=== PATIENT | female | born 1990 | race Caucasian/White ===

== ENCOUNTER 2020-03-15 10:12 | Inpatient (IN) | payer BC ==
[2020-03-15] MEDS ORDERED: Sodium Chloride 0.9% 10 ML Syringe FLUSH PRN (10:34)
[2020-03-15] MEDS ORDERED: Nalbuphine 10 MG/1 ML Vial IVPUSH PRN (10:34)
[2020-03-15] MEDS ORDERED: Ondansetron 4 MG/2 ML SDV IVPUSH PRN (10:34)
--- NOTE | 2020-03-15 10:36 | PCM.LDHP ---
L&D History of Present Illness - General Date of Service: 03/15/20 Admit Problem/Dx: Patient Status Order with Admit Dx/Problem 03/15/20 10:34 Patient Status [ADT] Routine Admission Diagnosis/Problem Admission Diagnosis/Problem Normal in third trimester Source of Information: Patient History Limitations: Reports: No Limitations - History of Present Illness Introduction:: Patient is a 29 y/o at 40 0/7 wks who presents in labor. Moe irregularly overnight. No LOF - Related Data Allergies/Adverse Reactions: Allergies Allergy/AdvReac Type Severity Reaction Status Date / Time Penicillins Allergy Rash Verified 03/15/20 10:27 Home Medications: Home Meds Vits #93/Iron Fum/FA [ Formula Tablet] 02/13/20 [History] Past Medical History Genitourinary History: Reports: Renal Calculus [employer] SUPER[employer]OR History: Reports: , Spontaneous : 2 Para: 0 LMP (Approximate): - Infectious Disease History Infectious Disease History: Reports: Herpes - Past Surgical History HEENT Surgical History: Reports: Adenoidectomy, Myringotomy w Tube(s), Tonsillectomy Social & Family History - Family History Family Medical History: No Pertinent Family History - Tobacco Use Tobacco Use Status *Q: Former Tobacco User - Caffeine Use Caffeine Use: Reports: Coffee, Energy Drinks, Soda - Alcohol Use Alcohol Use History: No - Recreational Drug Use Recreational Drug Use: No H&P Review of Systems - Review of Systems: Review Of Systems: See Below General: Reports: No Symptoms Pulmonary: Reports: No Symptoms Cardiovascular: Reports: No Symptoms Gastrointestinal: Reports: No Symptoms Genitourinary: Reports: No Symptoms Musculoskeletal: Reports: No Symptoms Psychiatric: Reports: No Symptoms Neurological: Reports: No Symptoms L&D Exam - Exam Exam: See Below - Vital Signs Weight: 92.714 kg - OB Specific Contraction Intensity: Moderate Movement: Active Heart Tones: Present Heart Tones per Min: 140 Heart Rate (FHR) Variability: Moderate (6-25 bmp) Presentation: Vertex - Suh Score Suh Score Cervix Position: Anterior Suh Score Consistency: Soft Suh Score Effacement: >80% Suh Score Dilation: > 5 cm Suh Score 's Station: -2 Suh Score Total: 11 - Exam General: Alert, Oriented, Cooperative Lungs: Clear to Auscultation, Normal Respiratory Effort Cardiovascular: Regular Rate, Regular Rhythm GI/Abdominal Exam: Soft, Non-Tender Genitourinary: Normal external exam Extremities: Normal Inspection Skin: Warm, Dry, Intact - Patient Data Result Diagrams: 03/15/20 10:47 - Problem List (1) 40 weeks gestation of SNOMED Code(s): 99769695 ICD Code: Z3A.40 - 40 WEEKS GESTATION OF Status: Acute Current Visit: Yes Problem List Initiated/Reviewed/Updated: Yes Orders Last 24hrs: Active Orders 24 hr Category Date Time Status Patient Status [ADT] Routine ADT 03/15/20 10:34 Ordered Activity as Tolerated [RC] PFP Care 03/15/20 10:34 Ordered Communication Order [RC] ASDIRECTED Care 03/15/20 10:34 Ordered Heart Tones [RC] ASDIRECTED Care 03/15/20 10:34 Ordered Non Stress Test [RC] PER UNIT ROUTINE Care 03/15/20 10:34 Ordered Notify Provider [RC] PFP Care 03/15/20 10:34 Ordered Notify Provider [RC] PRN Care 03/15/20 10:34 Ordered Peripheral IV Care [RC] . DIRECTED Care 03/15/20 10:34 Ordered Vital Signs [RC] PER UNIT ROUTINE Care 03/15/20 10:34 Ordered CBC W/O DIFF,HEMOGRAM [HEME] Stat Lab 03/15/20 10:34 Ordered CORONAVIRUS COVID-19 MARIO [MOLEC] Stat Lab 03/15/20 10:35 Ordered RAPID PLASMA REAGIN,RPR [CHEM] Routine Lab 03/15/20 10:34 Ordered TYPE AND SCREEN [BBK] Stat Lab 03/15/20 10:34 Ordered Lactated Ringers [Ringers, Lactated] 1,000 ml Med 03/15/20 10:45 Ordered IV ASDIRECTED Nalbuphine [Nubain] Med 03/15/20 10:34 Ordered 10 mg IVPUSH Q2H PRN Ondansetron [Zofran] Med 03/15/20 10:34 Ordered 4 mg IVPUSH Q4H PRN Oxytocin/Lactated Ringers [Pitocin in LR 10 Units/1,000 Med 03/15/20 10:45 Ordered ML] 10 unit in 1,000 ml IV .CONTINUOUS Oxytocin/Lactated Ringers [Pitocin in LR 10 Units/1,000 Med 03/15/20 10:45 Ordered ML] 10 unit in 1,000 ml IV TITRATE Sodium Chloride 0.9% [Saline Flush] Med 03/15/20 10:34 Ordered 10 ml FLUSH ASDIRECTED PRN Electronic Heart Tones Ext w TOCO [WOMSER] Ot 03/15/20 10:34 Ordered Routine Electronic Heart Tones Internal [WOMSER] Per Unit Ot 03/15/20 10:34 Ordered Routine Peripheral IV Insertion Adult [OM.PC] Routine Oth 03/15/20 10:34 Ordered Resuscitation Status Routine Resus Stat 03/15/20 10:34 Ordered Assessment/Plan Comment:: * Labs done * GBS negative * Plans epidural * AROM if / when needed * Anticipate
[2020-03-15] MEDS ORDERED: Oxytocin/Lactated Ringers 10 UNIT/1,000 ML BAG IV SCH ×2 (10:45)
[2020-03-15] MEDS: Lactated Ringers 1,000 ML IV SCH ×3 (11:28→14:25)
[2020-03-15] MEDS ORDERED: diphenhydrAMINE 50 MG/ML SDV IVPUSH PRN (11:37)
[2020-03-15] MEDS ORDERED: fentaNYL 100 MCG/2 ML SDV EPIDUR PRN (11:37)
[2020-03-15] MEDS ORDERED: ePHEDrine 50 MG/ML SDV IVPUSH PRN (11:37)
[2020-03-15] MEDS: Bupivacaine/fentaNYL/NS 100 ML Bag EPIDUR PRN ×2 (11:56→20:56)
--- NOTE | 2020-03-15 12:34 | PCM.PREANE ---
Preanesthetic Assessment - Procedure Proposed Procedure: Labor Epidural - Anesthesia/Transfusion/Family Hx Anesthesia History: Prior Anesthesia Without Reaction Family History of Anesthesia Reaction: No - Review of Systems General: No Symptoms Pulmonary: No Symptoms Cardiovascular: No Symptoms Gastrointestinal: No Symptoms Neurological: No Symptoms Other: Reports: None - Physical Assessment Height: 1.6 m Weight: 92.714 kg ASA Class: 2 Mental Status: Alert & Oriented x3 Airway Class: Mallampati = 2 Dentition: Reports: Normal Dentition Thyro-Mental Finger Breadths: 3 Mouth Opening Finger Breadths: 3 ROM/Head Extension: Full Lungs: Clear to Auscultation, Normal Respiratory Effort Cardiovascular: Regular Rate, Regular Rhythm - Lab Values: Laboratory Last Values WBC 15.65 K/mm3 (3.98-10.04) H 03/15/20 10:47 RBC 4.58 M/mm3 (3.98-5.22) 03/15/20 10:47 Hgb 12.9 gm/dl (11.2-15.7) 03/15/20 10:47 Hct 39.3 % (34.1-44.9) 03/15/20 10:47 MCV 85.8 fl (79.4-94.8) 03/15/20 10:47 MCH 28.2 pg (25.6-32.2) 03/15/20 10:47 MCHC 32.8 g/dl (32.2-35.5) 03/15/20 10:47 RDW Std Deviation 44.7 fL (36.4-46.3) 03/15/20 10:47 Plt Count 205 K/mm3 (182-369) 03/15/20 10:47 MPV 12.2 fl (9.4-12.3) 03/15/20 10:47 SARS-CoV-2 RNA (MARIO) Negative (NEGATIVE) 03/15/20 10:47 Blood Type O POSITIVE 03/15/20 10:47 Gel Antibody Screen Negative 03/15/20 10:47 - Allergies Allergies/Adverse Reactions: Allergies Allergy/AdvReac Type Severity Reaction Status Date / Time Penicillins Allergy Rash Verified 03/15/20 10:27 - Acknowledgements Anesthesia Type Planned: Epidural Pt an Appropriate Candidate for the Planned Anesthesia: Yes Alternatives and Risks of Anesthesia Discussed w Pt/Guardian: Yes Pt/Guardian Understands and Agrees with Anesthesia Plan: Yes PreAnesthesia Questionnaire - Past Health History Medical/Surgical History: Denies Medical/Surgical History Genitourinary History: Reports: Renal Calculus [employer] 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: , Spontaneous Neurological History: Reports: None Psychiatric History: Reports: None Endocrine/Metabolic History: Reports: None Oncologic (Cancer) History: Reports: None Dermatologic History: Reports: None - Infectious Disease History Infectious Disease History: Reports: Herpes - Past Surgical History HEENT Surgical History: Reports: Adenoidectomy, Myringotomy w Tube(s), Tonsillectomy - SUBSTANCE USE Tobacco Use Status *Q: Former Tobacco User Recreational Drug Use History: No - HOME MEDS Home Medications: Home Meds Vits #93/Iron Fum/FA [ Formula Tablet] 02/13/20 [History] - CURRENT (IN HOUSE) MEDS Current Meds: Current Medications Diphenhydramine HCl (Benadryl) 25 mg IVPUSH Q6H PRN PRN Reason: pruritis Ephedrine Sulfate (Ephedrine Sulfate) 5 mg IVPUSH ASDIRECTED PRN PRN Reason: Hypotension Fentanyl (Sublimaze) 100 mcg EPIDUR Q3H PRN PRN Reason: Pain Last Admin: 03/15/20 11:56 Dose: 100 mcg Documented by: Fentanyl/Bupivacaine HCl (Fentanyl/Bupivacaine/Ns 2 Mcg-0.125% 100 Ml) 100 ml EPIDUR ASDIRECTED PRN PRN Reason: Pain Last Admin: 03/15/20 11:56 Dose: 100 ml Documented by: Oxytocin/Lactated Ringer's (Pitocin In Lr 10 Units/1,000 Ml) 10 unit in 1,000 mls @ 500 mls/hr IV .CONTINUOUS JOLYNN Oxytocin/Lactated Ringer's (Pitocin In Lr 10 Units/1,000 Ml) 10 unit in 1,000 mls @ 12 mls/hr IV TITRATE JOLYNN; Protocol Lactated Ringer's (Ringers, Lactated) 1,000 mls @ 100 mls/hr IV ASDIRECTED JOLYNN Last Admin: 03/15/20 12:22 Dose: 100 mls/hr Documented by: Nalbuphine HCl (Nubain) 10 mg IVPUSH Q2H PRN PRN Reason: Pain Ondansetron HCl (Zofran) 4 mg IVPUSH Q4H PRN PRN Reason: Nausea/Vomiting Sodium Chloride (Saline Flush) 10 ml FLUSH ASDIRECTED PRN PRN Reason: Keep Vein Open
--- NOTE | 2020-03-15 17:36 | PCM.PNLD ---
Labor Progress Note - VS & Meds Vital Signs: Last Vital Signs Temp 36.7 C 03/15/20 10:34 Pulse 91 03/15/20 10:34 Resp 16 03/15/20 10:34 BP 127/86 03/15/20 10:34 Pulse Ox 97 03/15/20 10:34 Active Medications: Current Medications Diphenhydramine HCl (Benadryl) 25 mg IVPUSH Q6H PRN PRN Reason: pruritis Ephedrine Sulfate (Ephedrine Sulfate) 5 mg IVPUSH ASDIRECTED PRN PRN Reason: Hypotension Fentanyl (Sublimaze) 100 mcg EPIDUR Q3H PRN PRN Reason: Pain Last Admin: 03/15/20 11:56 Dose: 100 mcg Documented by: Fentanyl/Bupivacaine HCl (Fentanyl/Bupivacaine/Ns 2 Mcg-0.125% 100 Ml) 100 ml EPIDUR ASDIRECTED PRN PRN Reason: Pain Last Admin: 03/15/20 11:56 Dose: 100 ml Documented by: Oxytocin/Lactated Ringer's (Pitocin In Lr 10 Units/1,000 Ml) 10 unit in 1,000 mls @ 500 mls/hr IV .CONTINUOUS JOLYNN Oxytocin/Lactated Ringer's (Pitocin In Lr 10 Units/1,000 Ml) 10 unit in 1,000 mls @ 12 mls/hr IV TITRATE JOLYNN; Protocol Last Titration: 03/15/20 16:07 Dose: 1 munits/min, 6 mls/hr Documented by: Lactated Ringer's (Ringers, Lactated) 1,000 mls @ 100 mls/hr IV ASDIRECTED JOLYNN Last Admin: 03/15/20 14:25 Dose: 100 mls/hr Documented by: Nalbuphine HCl (Nubain) 10 mg IVPUSH Q2H PRN PRN Reason: Pain Ondansetron HCl (Zofran) 4 mg IVPUSH Q4H PRN PRN Reason: Nausea/Vomiting Sodium Chloride (Saline Flush) 10 ml FLUSH ASDIRECTED PRN PRN Reason: Keep Vein Open - Uterine Contractions Uterine Monitoring Mode: External Rolfe Contraction Intensity: Moderate to Strong - Monitoring Monitor Mode: External Ultrasound Heart Rate (FHR) Baseline: 120 Heart Rate (FHR) Variability: Moderate (6-25 bmp) Accelerations: Present, 15x15 Decelerations: Early, Late (rare), Variable Strip Review: Category II - Vaginal Exam Dilation (cm): 9.5 Effacement (Percent): 100 Station: -1 Cervical Position: Midposition - Labor Progress (Free Text) Labor Progress: Doing well. On 1 of pitocin. Will recheck in about 2 minutes.
[2020-03-15] MEDS ORDERED: Ampicillin 2 GM in Sodium Chloride 0.9% 100 ML IV ONE (21:02)
[2020-03-15] MEDS ORDERED: Gentamicin 460 MG in Sodium Chloride 0.9% 100 ML IV ONE (21:04)
[2020-03-15] MEDS ORDERED: Ampicillin 2 GM AdvVial IV ONE (21:06)
[2020-03-15] MEDS ORDERED: Sodium Chloride 0.9% 100 ML ONE (21:06)
--- NOTE | 2020-03-15 21:09 | PCM.SN.2 ---
- Free Text/Narrative Note: Patient with elevated temporal temperature. Immediate repeat axillary also elevated at 101.3. Reviewed findings with family. Will start antibiotics. Patient with PCN allergy of a rash when she was a baby. Will use Ampicillin and monitor closely. Gentamicin to be given as well. Theresa Garland MD
[2020-03-15] MEDS ORDERED: Acetaminophen 325 MG Tab PO ONE (21:18)
--- NOTE | 2020-03-15 21:46 | PCM.DEL ---
L & D Note - General Info Date of Service: 03/15/20 - Delivery Note Labor: Augmented by Oxytocin Delivery Outcome: Livebirth Delivery Method: Spontaneous Vaginal Delivery-Single Delivery Mode: Spontaneous Presentation: Right Occiput Anterior (MARCO) Nuchal Cord: None Anesthesia Type: Epidural Episiotomy Type: None Laceration: 2nd Degree, Perineal Suture type: Vicryl Suture size: 2-0 Placenta: Intact, Spontaneous Cord: 3 Vessels Estimated Blood Loss: 150 Resuscitation Needed: Yes : Bulb Syringe, Stimulated, Warmed, Pepin Used Delivery Comments (Free Text/Narrative):: Patient found to be complete and began pushing. With maternal pushing effort fe kole head delivered from MARCO presentation. No nuchal cord present. With gentle downward traction the shoulders and body delivered. placed on maternal abdomen. Cord clamped and cut. Cord blood obtained. Placenta allowed time to separate and expelled intact. Inspection of perineum showed 2nd degree laceration. This was repaired with 2-0 vicryl in the typical fashion. - General Info Date of Service: 03/15/20 - Patient Data Vitals - Most Recent: Last Vital Signs Temp 38.5 C H 03/15/20 21:22 Pulse 91 03/15/20 10:34 Resp 16 03/15/20 10:34 BP 127/86 03/15/20 10:34 Pulse Ox 97 03/15/20 10:34 Weight - Most Recent: 92.714 kg - Problem List & Annotations (1) 40 weeks gestation of SNOMED Code(s): 78977972 Code(s): Z3A.40 - 40 WEEKS GESTATION OF Status: Acute Current Visit: Yes (2) Vaginal delivery SNOMED Code(s): 664963738 Code(s): O80 - ENCOUNTER FOR FULL-TERM UNCOMPLICATED DELIVERY Status: Acute Current Visit: Yes - Problem List Review Problem List Initiated/Reviewed/Updated: Yes - My Orders Last 24 Hours: My Active Orders 03/15/20 10:34 Patient Status [ADT] Routine Activity as Tolerated [RC] PFP Communication Order [RC] ASDIRECTED Heart Tones [RC] ASDIRECTED Non Stress Test [RC] PER UNIT ROUTINE Notify Provider [RC] PFP Notify Provider [RC] PRN Peripheral IV Care [RC] . DIRECTED Vital Signs [RC] PER UNIT ROUTINE Nalbuphine [Nubain] 10 mg IVPUSH Q2H PRN Ondansetron [Zofran] 4 mg IVPUSH Q4H PRN Sodium Chloride 0.9% [Saline Flush] 10 ml FLUSH ASDIRECTED PRN Electronic Heart Tones Ext w TOCO [WOMSER] Routine Electronic Heart Tones Internal [WOMSER] Per Unit Routine Peripheral IV Insertion Adult [OM.PC] Routine Resuscitation Status Routine 03/15/20 10:45 Lactated Ringers [Ringers, Lactated] 1,000 ml IV ASDIRECTED Oxytocin/Lactated Ringers [Pitocin in LR 10 Units/1,000 ML] 10 unit in 1,000 ml IV .CONTINUOUS Oxytocin/Lactated Ringers [Pitocin in LR 10 Units/1,000 ML] 10 unit in 1,000 ml IV TITRATE 03/15/20 Dinner Regular Diet [DIET] - Assessment Assessment:: PPD#0 - Plan Plan:: * Routine cares * Breast feeding * Discharge home in 1-2 days
[2020-03-15] MEDS ORDERED: Docusate Sodium 100 MG Cap PO PRN (23:10)
[2020-03-15] MEDS ORDERED: Benzocaine/Menthol 20%-0.5% Spray 56 GM Canister TOP PRN (23:10)
[2020-03-15] MEDS ORDERED: Acetaminophen 325 MG Tab PO PRN (23:10)
[2020-03-15] MEDS ORDERED: Witch Hazel Medicated Pads 40/Jar TOP PRN (23:10)
[2020-03-15] MEDS: Ibuprofen 600 MG Tab PO PRN (23:35)
--- NOTE | 2020-03-16 07:12 | PCM.PNPP ---
- General Info Date of Service: 03/16/20 Functional Status: Reports: Pain Controlled, Tolerating Diet, Ambulating, Urinating - Review of Systems General: Reports: No Symptoms Pulmonary: Reports: No Symptoms Cardiovascular: Reports: No Symptoms Gastrointestinal: Reports: No Symptoms Genitourinary: Reports: No Symptoms Musculoskeletal: Reports: No Symptoms Neurological: Reports: No Symptoms - Patient Data Vital Signs - Most Recent: Last Vital Signs Temp 36.6 C 03/16/20 04:09 Pulse 98 03/16/20 04:09 Resp 14 03/16/20 04:09 BP 121/60 03/16/20 04:09 Pulse Ox 98 03/16/20 04:09 Weight - Most Recent: 92.714 kg I&O - Last 24 Hours: Intake & Output 03/15/20 03/16/20 03/16/20 22:59 06:59 14:59 Intake Total 5200 Balance 5200 Lab Results - Last 24 Hours: Laboratory Results - last 24 hr 03/15/20 03/15/20 03/15/20 Range/Units 10:47 10:47 10:47 WBC 15.65 H (3.98-10.04) K/mm3 RBC 4.58 (3.98-5.22) M/mm3 Hgb 12.9 (11.2-15.7) gm/dl Hct 39.3 (34.1-44.9) % MCV 85.8 (79.4-94.8) fl MCH 28.2 (25.6-32.2) pg MCHC 32.8 (32.2-35.5) g/dl RDW Std Deviation 44.7 (36.4-46.3) fL Plt Count 205 (182-369) K/mm3 MPV 12.2 (9.4-12.3) fl RPR Non-reactive (NONREACTIVE) SARS-CoV-2 RNA (MARIO) (NEGATIVE) Blood Type O POSITIVE Gel Antibody Screen Negative 03/15/20 Range/Units 10:47 WBC (3.98-10.04) K/mm3 RBC (3.98-5.22) M/mm3 Hgb (11.2-15.7) gm/dl Hct (34.1-44.9) % MCV (79.4-94.8) fl MCH (25.6-32.2) pg MCHC (32.2-35.5) g/dl RDW Std Deviation (36.4-46.3) fL Plt Count (182-369) K/mm3 MPV (9.4-12.3) fl RPR (NONREACTIVE) SARS-CoV-2 RNA (MARIO) Negative (NEGATIVE) Blood Type Gel Antibody Screen Med Orders - Current: Current Medications Acetaminophen (Tylenol) 650 mg PO Q4H PRN PRN Reason: mild pain or fever Benzocaine/Menthol (Dermoplast Pain Relief [place]) 0 gm TOP ASDIRECTED PRN PRN Reason: Perineal Comfort Measure Last Admin: 03/15/20 23:36 Dose: 1 can Documented by: Docusate Sodium (Colace) 100 mg PO BID PRN PRN Reason: Constipation Last Admin: 03/15/20 23:35 Dose: 100 mg Documented by: Ibuprofen (Motrin) 600 mg PO Q4H PRN PRN Reason: Mild pain or fever Last Admin: 03/15/20 23:35 Dose: 600 mg Documented by: [facility] ([facility]) 1 pad TOP ASDIRECTED PRN PRN Reason: Perineal Comfort Measure Last Admin: 03/15/20 23:35 Dose: 1 container Documented by: Discontinued Medications Acetaminophen (Tylenol) 975 mg PO NOW ONE Stop: 03/15/20 21:19 Last Admin: 03/15/20 21:22 Dose: 975 mg Documented by: Ampicillin Sodium (Ampicillin) Confirm Administered Dose 2 gm IV .STK-MED ONE Stop: 03/15/20 21:07 Last Admin: 03/15/20 21:13 Dose: 2 gm Documented by: Diphenhydramine HCl (Benadryl) 25 mg IVPUSH Q6H PRN PRN Reason: pruritis Ephedrine Sulfate (Ephedrine Sulfate) 5 mg IVPUSH ASDIRECTED PRN PRN Reason: Hypotension Fentanyl (Sublimaze) 100 mcg EPIDUR Q3H PRN PRN Reason: Pain Last Admin: 03/15/20 11:56 Dose: 100 mcg Documented by: Fentanyl/Bupivacaine HCl (Fentanyl/Bupivacaine/Ns 2 Mcg-0.125% 100 Ml) 100 ml EPIDUR ASDIRECTED PRN PRN Reason: Pain Last Admin: 03/15/20 20:56 Dose: 100 ml Documented by: Oxytocin/Lactated Ringer's (Pitocin In Lr 10 Units/1,000 Ml) 10 unit in 1,000 mls @ 500 mls/hr IV .CONTINUOUS JOLYNN Last Admin: 03/15/20 22:25 Dose: 999 mls/hr Documented by: Oxytocin/Lactated Ringer's (Pitocin In Lr 10 Units/1,000 Ml) 10 unit in 1,000 mls @ 12 mls/hr IV TITRATE JOLYNN; Protocol Last Titration: 03/15/20 21:29 Dose: 166.5 munits/min, 999 mls/hr Documented by: Lactated Ringer's (Ringers, Lactated) 1,000 mls @ 100 mls/hr IV ASDIRECTED JOLYNN Last Admin: 03/15/20 14:25 Dose: 100 mls/hr Documented by: Ampicillin Sodium 2 gm/ Sodium (Chloride) 100 mls @ 200 mls/hr IV ONETIME ONE Stop: 03/15/20 21:31 Last Admin: 03/16/20 04:37 Dose: Not Given Documented by: Gentamicin Sulfate 460 mg/ (Sodium Chloride) 111.5 mls @ 111.5 mls/hr IV ONETIME ONE Stop: 03/15/20 21:05 Last Admin: 03/15/20 21:45 Dose: 111.5 mls/hr Documented by: Sodium Chloride (Normal Saline) Confirm Administered Dose 100 mls @ as directed .ROUTE .STK-MED ONE Stop: 03/15/20 21:07 Last Admin: 03/15/20 21:13 Dose: 200 mls/hr Documented by: Nalbuphine HCl (Nubain) 10 mg IVPUSH Q2H PRN PRN Reason: Pain Ondansetron HCl (Zofran) 4 mg IVPUSH Q4H PRN PRN Reason: Nausea/Vomiting Sodium Chloride (Saline Flush) 10 ml FLUSH ASDIRECTED PRN PRN Reason: Keep Vein Open - Interaction Infant Disposition, : in Room with Family Infant Interaction: Holding Infant Feeding: Attempted ; Nursed Fair/Poor Support Person: - Recovery Exam Fundal Tone: Firm Fundal Level: At Umbilicus Fundal Placement: Midline Lochia Amount: Small Lochia Color: Rubra/Red Perineum Description: Other (see below) Other Perinuem Description: 2nd degree laceration with repair Episiotomy/Laceration: Approximated Bladder Status: Voiding - Exam General: Alert, Oriented GI/Abdominal Exam: Soft, Non-Tender - Problem List & Annotations (1) 40 weeks gestation of SNOMED Code(s): 93263721 Code(s): Z3A.40 - 40 WEEKS GESTATION OF Status: Acute Current Visit: Yes (2) Vaginal delivery SNOMED Code(s): 577024033 Code(s): O80 - ENCOUNTER FOR FULL-TERM UNCOMPLICATED DELIVERY Status: Acute Current Visit: Yes - Problem List Review Problem List Initiated/Reviewed/Updated: Yes - My Orders Last 24 Hours: My Active Orders 03/15/20 Breakfast Regular Diet [DIET] 03/15/20 10:34 Resuscitation Status Routine 03/15/20 23:10 Acetaminophen [TylenoL] 650 mg PO Q4H PRN Benzocaine/Menthol [Dermoplast Pain Relief [place]] See Dose Instructions TOP ASDIRECTED PRN Docusate Sodium [Colace] 100 mg PO BID PRN Ibuprofen [Motrin] 600 mg PO Q4H PRN witch Dvein [Tucks] 1 pad TOP ASDIRECTED PRN Heat Therapy [OM.PC] PRN 03/15/20 23:10 Activity as Tolerated [RC] PER UNIT ROUTINE Vital Signs [RC] 03,09,15,21 Assess Lochia [WOMSER] Per Unit Routine Assess Uterine Involution [WOMSER] Per Unit Routine Breast Pump [WOMSER] Per Unit Routine Ice Therapy [OM.PC] Per Unit Routine Perineal Care [OM.PC] Per Unit Routine Peripheral IV Discontinue [OM.PC] Routine Sitz Bath [OM.PC] Per Unit Routine 03/16/20 23:10 Heat Therapy [OM.PC] PRN - Assessment Assessment:: PPD#1 - Plan Plan:: * Routine cares * Breast feeding * Discharge home tomorrow
--- NOTE | 2020-03-16 07:29 | PCM48HPAN ---
Post Anesthesia Note - EVALUATION WITHIN 48HRS OF ANESTHETIC Vital Signs in Normal Range: Yes Patient Participated in Evaluation: Yes Respiratory Function Stable: Yes Airway Patent: Yes Cardiovascular Function Stable: Yes Hydration Status Stable: Yes Pain Control Satisfactory: Yes Nausea and Vomiting Control Satisfactory: Yes Mental Status Recovered: Yes Vital Signs: Last Vital Signs Temp 36.6 C 03/16/20 04:09 Pulse 98 03/16/20 04:09 Resp 14 03/16/20 04:09 BP 121/60 03/16/20 04:09 Pulse Ox 98 03/16/20 04:09
[2020-03-16] MEDS: Ibuprofen 600 MG Tab PO PRN ×3 (08:05→18:24)
[2020-03-16] MEDS ORDERED: Bupivacaine 0.25% 10 ML SDV ONE (18:00)
[2020-03-17] MEDS: Ibuprofen 600 MG Tab PO PRN ×2 (01:22→09:44)
--- NOTE | 2020-03-17 07:54 | PCM.DCSUM1 ---
Discharge Summary - Discharge Data Discharge Date: 03/17/20 Discharge Disposition: Home, Self-Care 01 Condition: Good - Referral to Home Health Primary Care Physician: Liana Andino MD - Discharge Diagnosis/Problem(s) (1) 40 weeks gestation of SNOMED Code(s): 36658973 ICD Code: Z3A.40 - 40 WEEKS GESTATION OF Status: Acute Current Visit: Yes (2) Chorioamnionitis, delivered, current hospitalization SNOMED Code(s): 40049932, 321073081 ICD Code: O41.1290 - CHORIOAMNIONITIS, UNSP TRIMESTER, NOT APPLICABLE OR UNSP Status: Acute Current Visit: Yes (3) Vaginal delivery SNOMED Code(s): 522443344 ICD Code: O80 - ENCOUNTER FOR FULL-TERM UNCOMPLICATED DELIVERY Status: Acute Current Visit: Yes - Patient Summary/Data Complications: None Consults: None Recommended Follow-up Testing/Procedures: Follow up in 3 weeks for check Hospital Course: 29 y/o at 40 0/7 wks who presented in labor. Progressed well. Did have a fever with pushing and so was started on Ampicillin and Gentamicin. (Tolerated Ampicillin well). Underwent an uncomplicated . did well and was discharged home on PPD#2 - Patient Instructions Diet: Regular Diet as Tolerated Activity: As Tolerated Activity, Other: Pelvic rest for 6 weeks Driving: May Drive Today Showering/Bathing: May Shower Showering/Bathing, Other: May Bathe Notify Provider of: Fever, Increased Pain, Swelling and Redness, Drainage, Nausea and/or Vomiting - Discharge Plan *PRESCRIPTION DRUG MONITORING PROGRAM REVIEWED*: No *COPY OF PRESCRIPTION DRUG MONITORING REPORT IN PATIENT RANCHO: No Home Medications: Home Meds Vits #93/Iron Fum/FA [ Formula Tablet] 1 tab PO DAILY 02/13/20 [History] Docusate Sodium [Colace] 100 mg PO BID PRN cap 03/17/20 [Rx] Ibuprofen [Motrin] 600 mg PO Q4H PRN tablet 03/17/20 [Rx] Patient Handouts: and Self-Care, Care After Vaginal Delivery Referrals: Theresa Garland MD [Physician] - (3 weeks for check - can be telehealth) - Discharge Summary/Plan Comment DC Time >30 min.: No - Patient Data Weight - Most Recent: 92.714 kg
--- NOTE | 2020-03-17 07:54 | PCM.PNPP ---
- General Info Date of Service: 03/17/20 Functional Status: Reports: Pain Controlled, Tolerating Diet, Ambulating, Urinating - Review of Systems General: Reports: No Symptoms Pulmonary: Reports: No Symptoms Cardiovascular: Reports: No Symptoms Gastrointestinal: Reports: No Symptoms Genitourinary: Reports: No Symptoms Musculoskeletal: Reports: No Symptoms Neurological: Reports: No Symptoms - Patient Data Vital Signs - Most Recent: Last Vital Signs Temp 36.7 C 03/16/20 20:40 Pulse 88 03/16/20 20:40 Resp 15 03/16/20 20:40 BP 120/79 03/16/20 20:40 Pulse Ox 98 03/16/20 20:40 Weight - Most Recent: 92.714 kg Med Orders - Current: Current Medications Acetaminophen (Tylenol) 650 mg PO Q4H PRN PRN Reason: mild pain or fever Benzocaine/Menthol (Dermoplast Pain Relief [place]) 0 gm TOP ASDIRECTED PRN PRN Reason: Perineal Comfort Measure Last Admin: 03/15/20 23:36 Dose: 1 can Documented by: Docusate Sodium (Colace) 100 mg PO BID PRN PRN Reason: Constipation Last Admin: 03/15/20 23:35 Dose: 100 mg Documented by: Ibuprofen (Motrin) 600 mg PO Q4H PRN PRN Reason: Mild pain or fever Last Admin: 03/17/20 01:22 Dose: 600 mg Documented by: Huey Monroy (Anai) 1 pad TOP ASDIRECTED PRN PRN Reason: Perineal Comfort Measure Last Admin: 03/15/20 23:35 Dose: 1 container Documented by: Discontinued Medications Acetaminophen (Tylenol) 975 mg PO NOW ONE Stop: 03/15/20 21:19 Last Admin: 03/15/20 21:22 Dose: 975 mg Documented by: Ampicillin Sodium (Ampicillin) Confirm Administered Dose 2 gm IV .STK-MED ONE Stop: 03/15/20 21:07 Last Admin: 03/15/20 21:13 Dose: 2 gm Documented by: Bupivacaine HCl (Sensorcaine-Mpf 0.25%) 10 ml .ROUTE .STK-MED ONE Stop: 03/16/20 18:01 Diphenhydramine HCl (Benadryl) 25 mg IVPUSH Q6H PRN PRN Reason: pruritis Ephedrine Sulfate (Ephedrine Sulfate) 5 mg IVPUSH ASDIRECTED PRN PRN Reason: Hypotension Fentanyl (Sublimaze) 100 mcg EPIDUR Q3H PRN PRN Reason: Pain Last Admin: 03/15/20 11:56 Dose: 100 mcg Documented by: Fentanyl/Bupivacaine HCl (Fentanyl/Bupivacaine/Ns 2 Mcg-0.125% 100 Ml) 100 ml EPIDUR ASDIRECTED PRN PRN Reason: Pain Last Admin: 03/15/20 20:56 Dose: 100 ml Documented by: Oxytocin/Lactated Ringer's (Pitocin In Lr 10 Units/1,000 Ml) 10 unit in 1,000 mls @ 500 mls/hr IV .CONTINUOUS JOLYNN Last Admin: 03/15/20 22:25 Dose: 999 mls/hr Documented by: Oxytocin/Lactated Ringer's (Pitocin In Lr 10 Units/1,000 Ml) 10 unit in 1,000 mls @ 12 mls/hr IV TITRATE JOLYNN; Protocol Last Titration: 03/15/20 21:29 Dose: 166.5 munits/min, 999 mls/hr Documented by: Lactated Ringer's (Ringers, Lactated) 1,000 mls @ 100 mls/hr IV ASDIRECTED JOLYNN Last Admin: 03/15/20 14:25 Dose: 100 mls/hr Documented by: Ampicillin Sodium 2 gm/ Sodium (Chloride) 100 mls @ 200 mls/hr IV ONETIME ONE Stop: 03/15/20 21:31 Last Admin: 03/16/20 04:37 Dose: Not Given Documented by: Gentamicin Sulfate 460 mg/ (Sodium Chloride) 111.5 mls @ 111.5 mls/hr IV ONETIME ONE Stop: 03/15/20 21:05 Last Admin: 03/15/20 21:45 Dose: 111.5 mls/hr Documented by: Sodium Chloride (Normal Saline) Confirm Administered Dose 100 mls @ as directed .ROUTE .STK-MED ONE Stop: 03/15/20 21:07 Last Admin: 03/15/20 21:13 Dose: 200 mls/hr Documented by: Nalbuphine HCl (Nubain) 10 mg IVPUSH Q2H PRN PRN Reason: Pain Ondansetron HCl (Zofran) 4 mg IVPUSH Q4H PRN PRN Reason: Nausea/Vomiting Sodium Chloride (Saline Flush) 10 ml FLUSH ASDIRECTED PRN PRN Reason: Keep Vein Open - Infant Interaction Disposition, : in Room with Family Interaction: Holding Feeding: Attempted ; Nursed Fair/Poor Support Person: - Recovery Exam Fundal Tone: Firm Fundal Level: 1 Fingerbreadths Below Umbilicus Fundal Placement: Midline Lochia Amount: Small, Moderate Lochia Color: Rubra/Red Perineum Description: Other (see below) Other Perinuem Description: 2nd degree laceration with repair Episiotomy/Laceration: Approximated Bladder Status: Voiding Urinary Elimination: Voided - Exam General: Alert, Oriented, Cooperative GI/Abdominal Exam: Soft, Non-Tender - Problem List & Annotations (1) 40 weeks gestation of SNOMED Code(s): 98951056 Code(s): Z3A.40 - 40 WEEKS GESTATION OF Status: Acute Current V isit: Yes (2) Chorioamnionitis, delivered, current hospitalization SNOMED Code(s): 68302539, 462937193 Code(s): O41.1290 - CHORIOAMNIONITIS, UNSP TRIMESTER, NOT APPLICABLE OR UNSP Status: Acute Current Visit: Yes (3) Vaginal delivery SNOMED Code(s): 148985154 Code(s): O80 - ENCOUNTER FOR FULL-TERM UNCOMPLICATED DELIVERY Status: Acute Current Visit: Yes - Problem List Review Problem List Initiated/Reviewed/Updated: Yes - My Orders Last 24 Hours: My Active Orders 03/16/20 23:10 Heat Therapy [OM.PC] PRN 03/17/20 07:53 Ready for Discharge [RC] PER UNIT ROUTINE - Assessment Assessment:: PPD#2 - Plan Plan:: * Routine cares * Breast feeding * Discharge home today
[2020-03-17 17:09] VITALS: BP 116/82; PULSE 72
== END 2020-03-17 18:43 | disposition home or self-care (01) | DRG 560 ==
LOC: JD.OB 10:12 → OBSVTOIN 21:29 → JD.OB 21:30
PROVIDERS: ADMIT Obstetrics & Gynecology; ATTEND Obstetrics & Gynecology
PROC: 10E0XZZ Delivery of Products of Conception, External Approach (ICD-10-PCS; principal; 2020-03-15)
PROC: 3E0R3BZ Introduction of Anesthetic Agent into Spinal Canal, Percutaneous Approach (ICD-10-PCS; 2020-03-15)
PROC: 0KQM0ZZ Repair Perineum Muscle, Open Approach (ICD-10-PCS; 2020-03-15)
DX: O48.0 Post-term pregnancy (principal); O41.1230 Chorioamnionitis, third trimester, not applicable or unspecified; Z3A.40 40 weeks gestation of pregnancy; Z37.0 Single live birth; Z87.891 Personal history of nicotine dependence; O70.1 Second degree perineal laceration during delivery; Z20.822 Contact with and (suspected) exposure to COVID-19
CPT/HCPCS: 01967; 36415; 51702; 59025; 59409; 85027; 86592; 86850; 86900; 86901; A9270-GY; J0290; J1580; J2590; J3010; J3490; J7120; U0002

== ENCOUNTER 2023-09-17 06:48 | Inpatient (IN) | payer BC ==
[2023-09-17] MEDS ORDERED: Lidocaine 1% 50 ML MDV INJECT PRN (07:01)
[2023-09-17] MEDS ORDERED: Acetaminophen 325 MG Tab PO PRN (07:01)
[2023-09-17] MEDS ORDERED: Sodium Chloride 0.9% 10 ML Syringe FLUSH PRN (07:01)
[2023-09-17] MEDS ORDERED: Nalbuphine 10 MG/ML Syringe IVPUSH PRN (07:01)
[2023-09-17] MEDS ORDERED: Oxytocin/0.9 % Sodium Chloride 30 UNIT/500 ML BAG IV SCH (07:15)
[2023-09-17 07:41] LABS: BASOPHILS PERCENT AUTO 0.5 % (0.0-1.0); EOSINOPHILS ABSOLUTE AUTO 0.4 K/mm3 (0.0-0.4); EOSINOPHILS PERCENT AUTO 4.6 % (0.0-6.0); HEMATOCRIT 35.1 % (37.0-47.0); HEMOGLOBIN 11.3 gm/dl (12.0-16.0); IMMATURE GRAN ABSOLUTE AUTO 0.11 K/mm3 (0.00-0.05); IMMATURE GRAN PERCENT AUTO 1.3 % (0.0-0.4); LYMPHOCYTES ABSOLUTE AUTO 2.7 K/mm3 (1.0-4.8); LYMPHOCYTES PERCENT AUTO 32.5 % (24.0-44.0); MEAN CORPUSCULAR HEMOGLOBIN 27.2 pg (28.0-32.0); MEAN CORPUSCULAR HGB CONC 32.2 g/dl (32.0-36.0); MEAN CORPUSCULAR VOLUME 84.6 fl (83.0-99.0); MEAN PLATELET VOLUME 12.3 fl (9.4-12.3); MONOCYTES ABSOLUTE AUTO 0.6 K/mm3 (0.0-0.8); MONOCYTES PERCENT AUTO 7.7 % (0.0-8.0); NEUTROPHILS ABSOLUTE AUTO 4.5 K/mm3 (1.8-7.7); NEUTROPHILS PERCENT AUTO 53.4 % (41.0-71.0); PLATELET COUNT,PLT 162 K/mm3 (150-400); RED BLOOD CELL COUNT 4.15 M/mm3 (4.10-5.30); WHITE BLOOD CELL COUNT,WBC 8.33 K/mm3 (3.9-11.3)
[2023-09-17] MEDS: Oxytocin/0.9 % Sodium Chloride 30 UNIT/500 ML BAG IV SCH (09:10)
[2023-09-17] MEDS: Lactated Ringers 1,000 ML IV SCH (09:10)
[2023-09-17] MEDS ORDERED: diphenhydrAMINE 50 MG/ML SDV IVPUSH PRN (12:28)
[2023-09-17] MEDS ORDERED: ePHEDrine 50 MG/ML SDV IVPUSH PRN (12:28)
[2023-09-17] MEDS: Sodium Chloride 0.9% 10 ML Syringe FLUSH SCH (15:08)
[2023-09-17] MEDS: Bupivacaine/fentaNYL/NS 100 ML Bag EPIDUR PRN (15:09)
[2023-09-17] MEDS: Ondansetron 4 MG/2 ML SDV IVPUSH PRN (16:25)
[2023-09-18] MEDS ORDERED: Docusate Sodium 100 MG Cap PO PRN (00:05)
[2023-09-18] MEDS ORDERED: Acetaminophen 325 MG Tab PO PRN (00:05)
[2023-09-18] MEDS: Benzocaine/Menthol 20%-0.5% Spray 78 GM Cannister TOP PRN (01:17)
[2023-09-18] MEDS: Witch Hazel Medicated Pads 40/Jar TOP PRN (01:17)
[2023-09-18] MEDS: Ibuprofen 600 MG Tab PO SCH (01:18)
[2023-09-18] MEDS: Levothyroxine 75 MCG Tab PO SCH (05:57)
[2023-09-19] MEDS: Calcium Carbonate 500 MG Tab.Chew PO ONE (04:02)
[2023-09-19 08:27] VITALS: BP 125/93; PULSE 73
[2023-09-19] MEDS ORDERED: Measles, Mumps & Rubella Vaccine 0.5 ML SDV SUBCUT ONE (09:00)
== END 2023-09-19 09:25 | disposition home or self-care (01) | DRG 560 ==
LOC: JD.OB 06:48 → OBSVTOIN 23:11 → JD.OB 23:12
PROVIDERS: ADMIT Obstetrics & Gynecology; ATTEND Obstetrics & Gynecology
PROC: 10E0XZZ Delivery of Products of Conception, External Approach (ICD-10-PCS; principal; 2023-09-17)
PROC: 10907ZC Drainage of Amniotic Fluid, Therapeutic from Products of Conception, Via Natural or Artificial Opening (ICD-10-PCS; 2023-09-17)
PROC: 3E033VJ Introduction of Other Hormone into Peripheral Vein, Percutaneous Approach (ICD-10-PCS; 2023-09-17)
PROC: 0KQM0ZZ Repair Perineum Muscle, Open Approach (ICD-10-PCS; 2023-09-17)
PROC: 3E0R3BZ Introduction of Anesthetic Agent into Spinal Canal, Percutaneous Approach (ICD-10-PCS; 2023-09-17)
PROC: 00HU33Z Insertion of Infusion Device into Spinal Canal, Percutaneous Approach (ICD-10-PCS; 2023-09-17)
DX: O69.81X0 Labor and delivery complicated by cord around neck, without compression, not applicable or unspecified (principal); Z37.0 Single live birth; Z3A.40 40 weeks gestation of pregnancy; O70.1 Second degree perineal laceration during delivery
CPT/HCPCS: 36415; 51701; 51702; 59025; 59409; 85025; 86592; 86850; 86900; 86901; A9270-GY; C1726; J2405; J3490; J7120; J7999